=== PATIENT | male | born 1955 | race Caucasian/White ===

== ENCOUNTER 2017-02-14 10:34 | Emergency (ER) | payer BC, OTHER ==
[2017-02-14 10:41] VITALS: TEMP 98.2; BMI 25.4
[2017-02-14] MEDS ORDERED: ACETAMINOPHEN/CAFFEINE/BUTALBITAL 1 TAB PO ONE (10:57)
[2017-02-14] MEDS ORDERED: METOCLOPRAMIDE HCL INJECTION 10 MG/2 ML VIAL IVPB ONE (10:57)
[2017-02-14] MEDS ORDERED: SODIUM CHLORIDE 1,000 ML IV STA (10:57)
[2017-02-14] MEDS ORDERED: ACETAMINOPHEN/CAFFEINE/BUTALBITAL 1 TAB ONE (11:01)
--- NOTE | 2017-02-14 11:04 | PDOC ---
History of Present Illness - General Chief Complaint: Headache Stated Complaint: HEAD ACHE,NECK PAINA AND ELEVATED BLOOD PRESSURE Time Seen by Provider: 02/14/17 10:38 - History of Present Illness Initial Comments: 02/14/17 10:59 61 M with h/o HTN, BPH presents to ER with 2 weeks of intermittent headaches. Pt states that the headaches generally start in the back of the head and migrate forward bilaterally. He states that they are typically gradual onset, without thunderclap. Denies neck stiffness, denies F/C. Pt states that he has been taking motrin, which helps significantly. The headaches usually resolve completely after taking motrin. However, they return after a few hours. Pt also notes that his BP has been occasionally elevated. He reports occasionally measuring his BP in the 190s systolic. He denies CP/SOB. Does not know if there is an association with his elevated BP and his headaches. Pt denies N/V. Denies weakness/numbness/tingling in any extremity. Denies dizziness. Denies visual changes. Notably, pt reports that he has been cutting down on his caffeine intake. He typically drinks 2 large cups of coffee per day, but over the past 2 weeks has only been drinking 1 cup. Pt endorses social ETOH intake but denies any other substances. Past History - Past Medical History Allergies/Adverse Reactions: Allergies Allergy/AdvReac Type Severity Reaction Status Date / Time No Known Allergies Allergy Verified 02/14/17 10:36 Home Medications: Ambulatory Orders Losartan Potassium 50 mg PO DAILY 02/14/17 Tamsulosin HCl [Flomax] 0.4 mg PO DAILY 02/14/17 HTN: Yes - Psycho/Social/Smoking Cessation Hx Anxiety: No Suicidal Ideation: No Smoking History: Never smoked Have you smoked in the past 12 months: No Information on smoking cessation initiated: No Hx Alcohol Use: No Drug/Substance Use Hx: No Substance Use Type: None Review of Systems - Review of Systems Comments:: 02/14/17 11:06 "GENERAL/CONSTITUTIONAL: No fever or chills. No weakness. HEAD, EYES, EARS, NOSE AND THROAT: No change in vision. No ear pain or discharge. No sore throat. CARDIOVASCULAR: No chest pain or shortness of breath. RESPIRATORY: No cough, wheezing, or hemoptysis. GASTROINTESTINAL: No nausea, vomiting, diarrhea or constipation. GENITOURINARY: No dysuria, frequency, or change in urination. MUSCULOSKELETAL: No joint or muscle swelling or pain. No neck or back pain. SKIN: No rash NEUROLOGIC: + headache, no vertigo, loss of consciousness, or change in strength /sensation. ENDOCRINE: No increased thirst. No abnormal weight change. HEMATOLOGIC/LYMPHATIC: No anemia, easy bleeding, or history of blood clots. ALLERGIC/IMMUNOLOGIC: No hives or skin allergy. " *Physical Exam - Vital Signs Last Vital Signs Temp Pulse Resp BP Pulse Ox 98.2 F 78 18 146/96 100 02/14/17 10:36 02/14/17 10:36 02/14/17 10:36 02/14/17 10:36 02/14/17 10:36 - Physical Exam Comments: 02/14/17 11:06 "GENERAL: Awake, alert, and fully oriented, in no acute distress HEAD: No signs of trauma EYES: PERRLA, EOMI, sclera anicteric, conjunctiva clear ENT: Auricles normal inspection, hearing grossly normal, nares patent, oropharynx clear without exudates. Moist mucosa NECK: Normal ROM, no tenderness, no bruit, supple, no lymphadenopathy, JVD, or masses LUNGS: Breath sounds equal, clear to auscultation bilaterally. No wheezes, and no crackles HEART: Regular rate and rhythm, normal S1 and S2, no murmurs, rubs or gallops ABDOMEN: Soft, nontender, normoactive bowel sounds. No guarding, no rebound. No masses EXTREMITIES: Equal pulses, Normal range of motion, no edema. No clubbing or cyanosis. No cords, erythema, or tenderness NEUROLOGICAL: Cranial nerves II through XII intact. 5/5 strength and sensation in all extremities, visual elizondo intact, cerebellar function normal. Normal speech, normal gait SKIN: Warm, Dry, normal turgor, no rashes or lesions noted. ED Treatment Course - LABORATORY CBC & Chemistry Diagram: 02/14/17 11:15 02/14/17 11:15 - RADIOLOGY Radiology Studies Ordered: Category Date Time Status HEAD CT WITHOUT CONTRAST [CT] Stat CT Scan 02/14/17 10:57 Ordered Medical Decision Making - Medical Decision Making 02/14/17 11:08 61 M with intermittent headaches x 2 weeks. Possible caffeine withdrawal headaches, as timing coincides with pt reducing coffee intake. Pt with no neuro deficits or infectious symptoms to suggest meningitis or TOUR NARRATOR process. No red flags such as thunderclap headache or worst headache of life or neck stiffness. No carotid bruit to suggest dissection. - Labs - CTH - mee Avilez, IVF 02/14/17 12:12 Pt reassessed after IVF and meds. Now with complete resolution of headache. CTH negative. Labs unremarkable. Pt clinically stable for DC. To f/u with PMD and neuro. *DC/Admit/Observation/Transfer Diagnosis at time of Disposition: Headache - Discharge Dispostion Disposition: HOME Condition at time of disposition: Good - Patient Instructions Printed Discharge Instructions: DI for Headache Additional Instructions: Please follow up with your primary care doctor within 1 week for a re- evaluation. You will need a referral to a neurologist for further work up of your headache, including an MRI of your head and neck. You will also need to follow up with your primary doctor regarding your blood pressure. It was normal today, but if it becomes persistently elevated, it can lead to heart disease or kidney damage. If you experience worsening or persistent headache, neck stiffness, fevers, nausea, vomiting, chest pain, or any other concerning symptoms, return immediately to the ER. - Attestations Physician Attestion: 02/14/17 12:18 I, Dr. Liam Coronel MD, attest that this document has been prepared under my direction and personally reviewed by me in its entirety. I further attest, that it accurately reflects all work, treatment, procedures and medical decision -making performed by me.
[2017-02-14 11:22] LABS: BASOPHIL 1.3 % (0-2.0); EOSINOPHIL 5.2 % (0-4.5); MCHC 33.5 g/dl (32.0-35.9); MEAN CELL VOLUME 86.5 fl (80-96); MEAN PLT VOLUME 9.5 fl (7.5-11.1); NEUTROPHILS 68.1 % (42.8-82.8); PLATELET COUNT 169 K/MM3 (134-434); RDW 11.7 % (11.9-15.9)
[2017-02-14 11:38] LABS: ALBUMIN 4.5 g/dl (3.5-5.0); ALK PHOS 61 U/L (32-92); ANION GAP 4 (8-16); BILIRUBIN,TOTAL 1.5 mg/dl (0.2-1.0); CO2 26 mmol/L (22-28); CPK 102 IU/L (39-308); CREATININE 0.9 mg/dl (0.6-1.3); GLUCOSE,RANDOM 97 mg/dl (74-106); SGOT/AST 24 U/L (10-42); SGPT/ALT 27 U/L (10-40); TOT PROT 6.9 g/dl (6.4-8.3)
[2017-02-14 12:14] VITALS: BP 155/88; PULSE 63
[2017-02-14 12:20] LABS: TROPONIN I (DFP) < 0.03 ng/ml (0.03-0.50)
--- NOTE | 2017-02-16 08:08 | EKG ---
Test Reason : Blood Pressure : / mmHG Vent. Rate : 059 BPM Atrial Rate : 059 BPM P-R Int : 156 ms QRS Dur : 090 ms QT Int : 422 ms P-R-T Axes : 064 038 047 degrees QTc Int : 417 ms SINUS BRADYCARDIA OTHERWISE NORMAL ECG NO PREVIOUS ECGS AVAILABLE Confirmed by JOSY SIMON MD ([id number]) on 02/16/2017 8:07:59 AM Referred By: VIOLETA EAGLE Confirmed By:JOSY SIMON MD
== END 2017-02-14 12:32 | disposition home or self-care (01) ==
LOC: FER 10:34
PROC: 3E033GC Introduction of Other Therapeutic Substance into Peripheral Vein, Percutaneous Approach (ICD-10-PCS; principal; 2017-02-14)
PROC: 3E0337Z Introduction of Electrolytic and Water Balance Substance into Peripheral Vein, Percutaneous Approach (ICD-10-PCS; 2017-02-14)
DX: R51 Headache (principal); I10 Essential (primary) hypertension
CPT/HCPCS: 36415; 70450-TC; 80053; 84484; 85025; 93005; 99282-25

== ENCOUNTER 2017-11-15 12:00 | Emergency (ER) | payer BC ==
[2017-11-15 12:26] VITALS: BP 157/89; PULSE 85; TEMP 97.8; BMI 25.1
--- NOTE | 2017-11-15 13:19 | PDOC ---
History of Present Illness - General Chief Complaint: Injury Stated Complaint: RIGHT INDEX FINGER INJURY Time Seen by Provider: 11/15/17 12:22 History Source: Patient Exam Limitations: No Limitations - History of Present Illness Initial Comments: 11/15/17 13:16 62y M hx of htn presents with R index finger pain. The patient was closing his car door and was distracted and got his R index finger caught in the closing door yesterday. Pt notes some tingling, but notes pain is minimal yesterday - was able to flex/extend it. Today he ntoes there was inreased breuising, swelling, and notes it is difficult to flex/extend it as it feels tight. pt notes some mild bleeding at the cuticle. no other injuries. Past History - Past Medical History Allergies/Adverse Reactions: Allergies Allergy/AdvReac Type Severity Reaction Status Date / Time No Known Allergies Allergy Verified 11/15/17 12:18 Home Medications: Ambulatory Orders Losartan Potassium 50 mg PO DAILY 02/14/17 Amlodipine Besylate [Norvasc -] 5 mg PO DAILY 11/15/17 COPD: No HTN: Yes - Immunization History TDAP Vaccination: Yes - Suicide/Smoking/Psychosocial Hx Smoking History: Never smoked Have you smoked in the past 12 months: No If you are a former smoker, when did you quit?: 21 YEARS Information on smoking cessation initiated: No Hx Alcohol Use: Yes (SOCIAL) Drug/Substance Use Hx: No Substance Use Type: None Review of Systems - Review of Systems Able to Perform ROS?: Yes Comments:: 11/15/17 13:17 Musculskelatal -+R finger pain / swelling no reported back pain, skin - +Bleeding no reported bruising, erythema, rash neurological: + tingling, no reported headache, numbness, focal weakness, ataxia , hematologic: no reported easy bruising, easy bleeding *Physical Exam - Vital Signs Last Vital Signs Temp Pulse Resp BP Pulse Ox 97.8 F 85 16 157/89 100 11/15/17 12:17 11/15/17 12:17 11/15/17 12:17 11/15/17 12:17 11/15/17 12:17 - Physical Exam Comments: 11/15/17 13:18 GENERAL: The patient is awake, alert, and fully oriented, Nontoxic - in no acute distress. EXTREMITIES: no focal tenderness on R hand, R index finger - mild diffuse tenderness and swelling, ecchymotic, no focal bony tendeness, able to flex/ extend with pain, mild controlled bleeding at skin break on cuticle of R, no signs of subungal hematoma, sensation intact ED Treatment Course - RADIOLOGY Radiology Studies Ordered: Category Date Time Status FINGER(S) RIGHT [RAD] Stat Radiology 11/15/17 13:16 Ordered Medical Decision Making - Medical Decision Making 11/15/17 13:19 xray to fo fx *DC/Admit/Observation/Transfer Diagnosis at time of Disposition: Finger contusion Qualifiers: Encounter type: initial encounter Finger: index finger Damage to nail status: without damage Laterality: right Qualified Code(s): S60.021A - Contusion of right index finger without damage to nail, initial encounter - Discharge Dispostion Disposition: HOME Condition at time of disposition: Improved Decision to Admit order: No - Referrals Referrals: Parminder Montero [Primary Care Provider] - - Patient Instructions Printed Discharge Instructions: DI for Finger Sprain Additional Instructions: Return to the emergency department immediately with ANY new, persistent or worsening symptoms during any worsening pain, numbness, tingling or any other concerns. Take Motrin or ibuprofen or Tylenol as needed for your pain. Keep your arm elevated to minimize any swelling. You MUST call and follow up with your doctor in 3-4 days for further evaluation of your symptoms. Results were discussed with you. Please make sure your doctor reviews the results of your emergency evaluation. Print Language: SOUTH SUDANESE - Post Discharge Activity
== END 2017-11-15 14:24 | disposition home or self-care (01) ==
LOC: FER 12:00
DX: S60.021A Contusion of right index finger without damage to nail, initial encounter (principal); W23.0XXA Caught, crushed, jammed, or pinched between moving objects, initial encounter; Y93.89 Activity, other specified; Y92.9 Unspecified place or not applicable; I10 Essential (primary) hypertension; Z87.891 Personal history of nicotine dependence
CPT/HCPCS: 73140-TC-RT-FY; 99281-25

== ENCOUNTER 2019-03-29 08:55 | Emergency (ER) | payer OTHER, BC ==
[2019-03-29 09:09] VITALS: BP 173/94; PULSE 79; TEMP 97.6; BMI 25.1
--- NOTE | 2019-03-29 09:59 | PDOC ---
History of Present Illness - General Chief Complaint: Injury Stated Complaint: RIGHT ANKLE INJURY Time Seen by Provider: 03/29/19 09:08 - History of Present Illness Initial Comments: 03/29/19 09:56 63 years old with no past medical history presents to the ED with right foot injury. Patient was at work dropped a fence on his foot while wearing a boot initially no significant pain later that day and yesterday has had pain for the last 2 days symptoms are mild to moderate persistent constant he has been able to ambulate comfortably Past History - Past Medical History Allergies/Adverse Reactions: Allergies Allergy/AdvReac Type Severity Reaction Status Date / Time No Known Allergies Allergy Verified 03/29/19 08:57 Home Medications: Ambulatory Orders Losartan Potassium 50 mg PO DAILY 02/14/17 Amlodipine Besylate [Norvasc -] 5 mg PO DAILY 11/15/17 COPD: No HTN: Yes - Immunization History TDAP Vaccination: Yes - Psycho Social/Smoking Cessation Hx Smoking History: Never smoked Have you smoked in the past 12 months: No If you are a former smoker, when did you quit?: 21 YEARS Hx Alcohol Use: Yes (SOCIAL) Drug/Substance Use Hx: No Substance Use Type: None Review of Systems - Review of Systems Comments:: 03/29/19 09:56 ROS: A complete review of 10 out of 10 review of systems is taken and is negative apart from what is previously mentioned below and in the HPI. *Physical Exam - Vital Signs Last Vital Signs Temp Pulse Resp BP Pulse Ox 97.6 F 79 18 173/94 H 100 03/29/19 08:56 03/29/19 08:56 03/29/19 08:56 03/29/19 08:56 03/29/19 08:56 - Physical Exam Comments: 03/29/19 09:56 Vitals: Triage Vital signs reviewed General Appearance: No acute distress, well nourished well developed, Head: Atraumatic, Neck: Supple; no Nucal rigidity Chest Wall: Nontender Extremities: Full range of motion to all extremities, no cyanosis, clubbing, or edema Skin: Warm and dry, no rashes or lesions, no rash, no petechiae Psych: Normal mood, normal affect ED Treatment Course - RADIOLOGY Radiology Studies Ordered: Category Date Time Status ANKLE & FOOT-RIGHT* [RAD] Stat Radiology 03/29/19 09:08 Ordered Medical Decision Making - Medical Decision Making 03/29/19 09:57 No acute fracture dislocation noted on x-ray we will continue to recommend hard soled shoe orthopedic follow-up if persistent pain Patient advised to limit ambulation and walking if having pain patient asking to return to work states he feels comfortable however should his pain return he is advised to keep off his foot and follow-up with orthopedics [] Findings, the need for follow-up and strict return instructions discussed with patient. 03/29/19 13:50 Discharge - Discharge Information Problems reviewed: Yes Clinical Impression/Diagnosis: Foot injury Qualifiers: Encounter type: initial encounter Laterality: right Qualified Code(s): S99.921A - Unspecified injury of right foot, initial encounter Condition: Stable Disposition: HOME - Admission No - Follow up/Referral Referrals: Parminder Montero [Primary Care Provider] - Greg Fitzpatrick DO [Staff Physician] - - Patient Discharge Instructions Patient Printed Discharge Instructions: DI for Foot Sprain Additional Instructions: Ice foot 20 minutes on 20 minutes off. Hard soled shoe. Okay to return to work. If still having pain after 1 week follow-up with Dr. Fitzpatrick orthopedics. - Post Discharge Activity Work/Back to School Note: Back to Work
== END 2019-03-29 10:09 | disposition home or self-care (01) ==
LOC: FER 08:55
DX: M79.671 Pain in right foot (principal); S99.921A Unspecified injury of right foot, initial encounter; I10 Essential (primary) hypertension; Z87.891 Personal history of nicotine dependence; X58.XXXA Exposure to other specified factors, initial encounter; Y93.89 Activity, other specified; Y92.89 Other specified places as the place of occurrence of the external cause
CPT/HCPCS: 73610-TC-RT-FY; 73630-TC-RT-FY; 99281-25